=== PATIENT | female | born 2005 | race Caucasian/White ===

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

== ENCOUNTER → 2024-08-26 | Outpatient (CLI) | payer OTHER ==
[~2024-08-26] MED LIST changes: +BUPR-597 PO; +BUPR150T12; +BUPR150T12 PO; -BUPR300T92 PO; +FLUO-290 PO; -FLUO10CA16 PO; +IRON15CH PO; +LATU80TA2; +LATU80TA2 PO; +LEXA1TAB; +LEXA1TAB PO; +LOW-1TAB2; +LOW-1TAB2 PO; -MELA1TAB9 PO; +MELA3TAB49 PO; +MELA5TAB58 PO; +MULTCHW12 PO; +RISP-105 PO; -RISP-8 PO
[2024-08-26 11:36] LABS: HEMATOCRIT 41.2 % (36.0-47.0); HEMOGLOBIN 13.5 g/dl (12.0-15.5); MEAN CORPUSCULAR HEMOGLOBIN 26.9 pg (27.0-33.0); MEAN CORPUSCULAR HGB CONC 32.8 g/dl (32.0-36.5); MEAN CORPUSCULAR VOLUME 82.2 fl (80.0-96.0); PLATELET COUNT, AUTOMATED 269 10^3/uL (150-450); RED BLOOD COUNT 5.01 10^6/uL (4.00-5.40)
[2024-08-26 12:10] LABS: THYROID STIMULATING HORMONE 1.542 uIU/ML (0.55-4.78)
[2024-08-26 12:11] LABS: ALBUMIN 4.1 G/DL (3.2-5.2); ALKALINE PHOSPHATASE 87 U/L (35-104); ALT/SGPT 22 U/L (7.0-40); AST/SGOT 12 U/L (<34); BILIRUBIN,TOTAL 0.6 MG/DL (0.3-1.2); BLOOD UREA NITROGEN 7 MG/DL (9-23); CALCIUM LEVEL 9.4 MG/DL (8.5-10.1); CARBON DIOXIDE LEVEL 24 MMOL/L (20-31); CHLORIDE LEVEL 105 MMOL/L (98-107); GLOMERULAR FILTRATION RATE > 60.0 (>60); GLUCOSE, FASTING 106 MG/DL (60-100); POTASSIUM SERUM 3.8 MMOL/L (3.5-5.1); SODIUM LEVEL 141 MMOL/L (136-145); TOTAL 25(OH) VITAMIN D 22.9 NG/ML (20.0-100.0); TOTAL PROTEIN 7.6 G/DL (5.7-8.2)
[2024-08-26 12:12] LABS: MONO REFLEX EBV COMP NEGATIVE (NEGATIVE)
[2024-08-26 13:11] LABS: APPEARANCE, URINE HAZY (CLEAR); BACTERIA, URINE AUTO 1+ (NEGATIVE); BILIRUBIN, URINE AUTO NEGATIVE (NEGATIVE); BLOOD, URINE BLOOD 2+ (NEGATIVE); COLOR, URINE YELLOW (YELLOW); GLUCOSE, URINE (UA) AUTO NEGATIVE (NEGATIVE); KETONE, URINE AUTO 1+ mg/dL (NEGATIVE); LEUKOCYTE ESTERASE, URINE AUTO NEGATIVE (NEGATIVE); MUCUS, URINE SMALL (NEGATIVE); NITRITE, URINE AUTO NEGATIVE (NEGATIVE); PROTEIN, URINE AUTO 1+ mg/dL (NEGATIVE); RBC, URINE AUTO 1 /HPF (0-3); SPECIFIC GRAVITY URINE AUTO 1.021 (1.002-1.035); SQUAMOUS EPITHELIAL CELL UR AU 10 /HPF (0-6); WBC, URINE AUTO 3 /HPF (0-3)
[2024-08-28 13:37] LABS: EBV VIRAL CAPSID AG IGG < 18.00 U/mL (<18.00); EBV VIRAL CAPSID AG IGM < 36.00 U/mL (<36.00)
== END ==
LOC: M LAB 10:41
PROVIDERS: ATTEND Physician Assistant
DX: R53.83 Other fatigue (principal)

== ENCOUNTER → 2024-10-21 | Outpatient (REF) | payer OTHER ==
[2024-10-21 14:16] LABS: HEMATOCRIT 42.6 % (36.0-47.0); HEMOGLOBIN 13.5 g/dl (12.0-15.5); MEAN CORPUSCULAR HEMOGLOBIN 26.6 pg (27.0-33.0); MEAN CORPUSCULAR HGB CONC 31.7 g/dl (32.0-36.5); MEAN CORPUSCULAR VOLUME 83.9 fl (80.0-96.0); PLATELET COUNT, AUTOMATED 258 10^3/uL (150-450); RED BLOOD COUNT 5.08 10^6/uL (4.00-5.40); WHITE BLOOD COUNT 9.4 10^3/uL (4.0-10.0)
[2024-10-21 14:20] LABS: ALBUMIN 3.9 G/DL (3.2-5.2); ALKALINE PHOSPHATASE 88 U/L (35-104); ALT/SGPT 19 U/L (7.0-40); AST/SGOT 14 U/L (<34); BILIRUBIN,TOTAL 0.5 MG/DL (0.3-1.2); BLOOD UREA NITROGEN 10 MG/DL (9-23); CALCIUM LEVEL 9.2 MG/DL (8.5-10.1); CARBON DIOXIDE LEVEL 27 MMOL/L (20-31); CHLORIDE LEVEL 104 MMOL/L (98-107); CHOLESTEROL LEVEL 173 MG/DL (<200); CHOLESTEROL RISK RATIO 3.74 (<5); CREATININE FOR GFR 0.68 MG/DL (0.55-1.30); GLOMERULAR FILTRATION RATE > 90.0 (>60); GLUCOSE, FASTING 86 MG/DL (60-100); HDL CHOLESTEROL 46.2 MG/DL (>40); LDL CHOLESTEROL 105.8 MG/DL (<100); NON-HDL-C 126.8 MG/DL; POTASSIUM SERUM 3.8 MMOL/L (3.5-5.1); SODIUM LEVEL 141 MMOL/L (136-145); TOTAL PROTEIN 7.4 G/DL (5.7-8.2); TRIGLYCERIDES LEVEL 105 MG/DL (<150)
[2024-10-21 14:22] LABS: THYROID STIMULATING HORMONE 1.944 uIU/ML (0.55-4.78); TOTAL 25(OH) VITAMIN D 25.1 NG/ML (20.0-100.0)
[2024-10-21 14:28] LABS: HEMOGLOBIN A1c 5.2 % (4.0-6.0)
== END ==
LOC: M LAB REF 13:22
PROVIDERS: ATTEND Student in an Organized Health Care Education/Training Program
DX: E28.2 Polycystic ovarian syndrome (principal); Z68.41 Body mass index [BMI] 40.0-44.9, adult; F41.1 Generalized anxiety disorder

== ENCOUNTER → 2024-11-06 | Outpatient (REF) | payer OTHER ==
[~2024-11-06] MED LIST changes: -BUPR-597 PO; +BUPR-766 PO
[2024-11-06 18:25] LABS: BASO % 0.4 % (0.0-1.0); EOS # 0.1 10^3/uL (0.0-0.5); EOS % 0.7 % (0.0-3.0); HEMATOCRIT 40.4 % (36.0-47.0); HEMOGLOBIN 12.9 g/dl (12.0-15.5); LYMPH # 1.9 10^3/uL (1.5-5.0); LYMPH % 18.4 % (24.0-44.0); MEAN CORPUSCULAR HEMOGLOBIN 26.4 pg (27.0-33.0); MEAN CORPUSCULAR HGB CONC 31.9 g/dl (32.0-36.5); MEAN CORPUSCULAR VOLUME 82.8 fl (80.0-96.0); MONO # 0.7 10^3/uL (0.0-0.8); MONO % 6.8 % (2.0-8.0); NEUTROPHILS # 7.8 10^3/uL (1.5-8.5); NEUTROPHILS % 73.3 % (36.0-66.0); PLATELET COUNT, AUTOMATED 298 10^3/uL (150-450); RED BLOOD COUNT 4.88 10^6/uL (4.00-5.40); WHITE BLOOD COUNT 10.6 10^3/uL (4.0-10.0)
[2024-11-06 18:36] LABS: PERCENT SATURATION 9.3 % (13.2-45.0)
[2024-11-06 18:38] LABS: FERRITIN 13.1 NG/ML (7.3-270.7)
[2024-11-06 18:39] LABS: FOLATE 10.1 NG/ML (>5.4)
== END ==
LOC: M LAB REF 17:19
PROVIDERS: ATTEND Student in an Organized Health Care Education/Training Program
DX: R53.83 Other fatigue (principal)

== ENCOUNTER → 2024-11-12 | Outpatient (CLI) | payer OTHER | LOC: M EKG 13:02 | PROVIDERS: ATTEND Student in an Organized Health Care Education/Training Program | DX: R00.2 Palpitations (principal) ==

== ENCOUNTER → 2025-02-05 | Outpatient (CLI) | payer OTHER ==
[~2025-02-05] MED LIST changes: +CETI-24 PO; +LEXA1TAB2 PO; +LURA40TA2 PO; +ONDA-282 PO; +PROP20TA72 PO; +WELLTAB40 PO
== END ==
LOC: M SLEEP HO 11:27
PROVIDERS: ATTEND Student in an Organized Health Care Education/Training Program
DX: G47.33 Obstructive sleep apnea (adult) (pediatric) (principal); R53.83 Other fatigue

== ENCOUNTER 2025-02-11 16:31 | Inpatient (IN) | payer OTHER ==
[~2025-02-11] VITALS: Ht 167.6 cm; Wt 115.5 kg
[~2025-02-11 16:31] MED LIST changes: -CETI-24 PO; -LEXA1TAB2 PO; -LURA40TA2 PO; -ONDA-282 PO; -PROP20TA72 PO; -WELLTAB40 PO
[2025-02-11 17:18] LABS: PLATELET COUNT, AUTOMATED 308 10^3/uL (150-450)
[2025-02-11 17:45] LABS: BARBITURATES URINE NEGATIVE (NEGATIVE); COCAINE METABOLITE URINE NEGATIVE (NEGATIVE); METHADONE URINE NEGATIVE (NEGATIVE); OPIATES URINE NEGATIVE (NEGATIVE); PHENCYCLIDINE URINE NEGATIVE (NEGATIVE)
[2025-02-11 17:46] LABS: AMPHETAMINES LEVEL URINE NEGATIVE (NEGATIVE); BENZODIAZEPINES URINE NEGATIVE (NEGATIVE)
[2025-02-11 17:47] LABS: CANNABINOIDS URINE POSITIVE (NEGATIVE)
[2025-02-11 17:48] LABS: ETHYL ALCOHOL (ETHANOL) < 0.003 % (0.000-0.010)
[2025-02-11 17:50] LABS: ALT/SGPT 27 U/L (7.0-40); AST/SGOT 31 U/L (<34); CALCIUM LEVEL 8.7 MG/DL (8.5-10.1); CARBON DIOXIDE LEVEL 24 MMOL/L (20-31); CHLORIDE LEVEL 103 MMOL/L (98-107); CREATININE FOR GFR 0.66 MG/DL (0.55-1.30); GLOMERULAR FILTRATION RATE > 90.0 (>60); POTASSIUM SERUM 3.4 MMOL/L (3.5-5.1); SALICYLATE LEVEL < 3.0 MG/DL (<30); SODIUM LEVEL 141 MMOL/L (136-145)
[2025-02-11 17:52] LABS: HCG, SERUM QUALITATIVE NEGATIVE (NEGATIVE)
[2025-02-11] MEDS ORDERED: MOM 30 ML SUSPENSION UDC PO PRN (18:35)
[2025-02-11] MEDS ORDERED: IBUPROFEN 400 MG TAB PO PRN (18:35)
[2025-02-11] MEDS ORDERED: ACETAMINOPHEN 325 MG TAB PO PRN (18:35)
[2025-02-11] MEDS: POTASSIUM CHLORIDE 10MEQ SR TABLET PO ONE (18:38)
[2025-02-11] MEDS ORDERED: LURA40TA2 PO (18:46)
[2025-02-11] MEDS ORDERED: ONDA-282 PO (18:46)
[2025-02-11] MEDS ORDERED: LEXA1TAB2 PO (18:46)
[2025-02-11] MEDS ORDERED: CETI-24 PO (18:46)
[2025-02-11] MEDS ORDERED: PROP20TA72 PO (18:46)
[2025-02-11] MEDS ORDERED: WELLTAB40 PO (18:46)
[2025-02-11] MEDS ORDERED: HOME MED LIST COMPLETE! XX SCH (18:50)
[2025-02-11] MEDS: LORazepam 1 MG TAB PO ONE (19:09)
[2025-02-11 20:43] VITALS: BP 113/62; TEMP 97.1; O2SAT 97
[2025-02-12 06:35] VITALS: BP 106/58; TEMP 97.4; O2SAT 98
[2025-02-12] MEDS: PROPRANOLOL 20 MG TAB PO SCH (10:45)
[2025-02-12] MEDS: ESCITALOPRAM OXALATE 10 MG TABLET PO SCH (11:46)
[2025-02-12] MEDS: buPROPion **XL** 150 MG TABLET PO SCH (11:46)
[2025-02-12 15:08] VITALS: BP 122/62; TEMP 97.7; O2SAT 95
[2025-02-12] MEDS: LURASIDONE HCL 40 MG TAB PO SCH (17:50)
[2025-02-12 19:24] LABS: CALCIUM LEVEL 8.9 MG/DL (8.5-10.1); CARBON DIOXIDE LEVEL 25 MMOL/L (20-31); CHLORIDE LEVEL 105 MMOL/L (98-107); CREATININE FOR GFR 0.67 MG/DL (0.55-1.30); GLOMERULAR FILTRATION RATE > 90.0 (>60); POTASSIUM SERUM 3.5 MMOL/L (3.5-5.1); SODIUM LEVEL 142 MMOL/L (136-145)
[2025-02-12] MEDS: traZODone 50 MG TAB PO PRN (20:48)
[2025-02-12] MEDS: MAALOX 30 ML SUSP *UDC PO PRN (20:48)
[2025-02-13 06:43] VITALS: BP 123/86; TEMP 97.4; O2SAT 97
[2025-02-13 08:21] VITALS: BP 140/80
[2025-02-13] MEDS: PROPRANOLOL 20 MG TAB PO PRN (08:21)
== END 2025-02-13 10:02 | disposition home or self-care (01) | DRG 751 ==
LOC: M ED 16:31 → M ED INP 18:33 → M PSY 20:35
PROVIDERS: ADMIT Student in an Organized Health Care Education/Training Program; ATTEND Student in an Organized Health Care Education/Training Program
DX: F33.9 Major depressive disorder, recurrent, unspecified (principal); R45.851 Suicidal ideations; F41.1 Generalized anxiety disorder; F60.3 Borderline personality disorder; E87.6 Hypokalemia; E66.813 Obesity, class 3; F43.10 Post-traumatic stress disorder, unspecified; F41.0 Panic disorder [episodic paroxysmal anxiety]; Z91.51 Personal history of suicidal behavior; Z56.89 Other problems related to employment; Z79.899 Other long term (current) drug therapy; Z91.52 Personal history of nonsuicidal self-harm

== ENCOUNTER 2025-02-13 23:45 | Emergency (ER) | payer OTHER ==
[~2025-02-13] VITALS: Ht 167.6 cm; Wt 118.2 kg
[2025-02-13 23:46] VITALS: BP 120/73; TEMP 97; O2SAT 99
== END 2025-02-14 01:37 | disposition left against medical advice (07) ==
LOC: M ED 23:45
DX: Z53.21 Procedure and treatment not carried out due to patient leaving prior to being seen by health care provider (principal)

== ENCOUNTER → 2025-02-13 | Outpatient (CLI) | payer OTHER ==
[~2025-02-13] MED LIST changes: +CETI-24 PO; +LEXA1TAB2 PO; +LURA40TA2 PO; +ONDA-282 PO; +PROP20TA72 PO; +WELLTAB40 PO
[2025-02-13 16:05] LABS: ALT/SGPT 24 U/L (7.0-40); AST/SGOT 22 U/L (<34); CALCIUM LEVEL 8.5 MG/DL (8.5-10.1); CARBON DIOXIDE LEVEL 28 MMOL/L (20-31); CHLORIDE LEVEL 106 MMOL/L (98-107); CREATININE FOR GFR 0.82 MG/DL (0.55-1.30); GLOMERULAR FILTRATION RATE > 90.0 (>60); POTASSIUM SERUM 3.8 MMOL/L (3.5-5.1); SODIUM LEVEL 144 MMOL/L (136-145)
== END ==
LOC: M LAB 15:09
PROVIDERS: ATTEND Student in an Organized Health Care Education/Training Program
DX: R11.0 Nausea (principal)

== ENCOUNTER 2025-02-14 07:41 | Emergency (ER) | payer OTHER ==
[~2025-02-14] VITALS: Ht 167.6 cm; Wt 114.6 kg
[2025-02-14 11:28] VITALS: BP 128/73; TEMP 97.2; O2SAT 98
== END 2025-02-14 11:25 | disposition home or self-care (01) ==
LOC: M ED 07:41
DX: S93.492A Sprain of other ligament of left ankle, initial encounter (principal); R60.0 Localized edema; W19.XXXA Unspecified fall, initial encounter; Z79.83 Long term (current) use of bisphosphonates; Z79.899 Other long term (current) drug therapy; Y92.009 Unspecified place in unspecified non-institutional (private) residence as the place of occurrence of the external cause; Y93.89 Activity, other specified; Y99.9 Unspecified external cause status

== ENCOUNTER → 2025-02-26 | Outpatient (CLI) | payer OTHER | LOC: M SOG 13:07 | PROVIDERS: ATTEND Physician Assistant | DX: M79.672 Pain in left foot (principal) ==

== ENCOUNTER → 2025-04-17 | Outpatient (CLI) | payer OTHER ==
[2025-04-17 14:43] LABS: PLATELET COUNT, AUTOMATED 292 10^3/uL (150-450)
[2025-04-17 15:11] LABS: ALT/SGPT 24 U/L (7.0-40); AST/SGOT 22 U/L (<34); CALCIUM LEVEL 8.8 MG/DL (8.5-10.1); CARBON DIOXIDE LEVEL 28 MMOL/L (20-31); CHLORIDE LEVEL 105 MMOL/L (98-107); CREATININE FOR GFR 0.68 MG/DL (0.55-1.30); GLOMERULAR FILTRATION RATE > 90.0 (>60); POTASSIUM SERUM 4.0 MMOL/L (3.5-5.1); SODIUM LEVEL 143 MMOL/L (136-145)
== END ==
LOC: M LAB 13:47
PROVIDERS: ATTEND Physician Assistant Medical
DX: R19.7 Diarrhea, unspecified (principal); R15.2 Fecal urgency; R10.30 Lower abdominal pain, unspecified; K21.9 Gastro-esophageal reflux disease without esophagitis; R11.2 Nausea with vomiting, unspecified

== ENCOUNTER → 2025-06-03 | Outpatient (REF) | payer OTHER | LOC: M LAB REF 11:51 | PROVIDERS: ATTEND Physician Assistant Medical | DX: R19.7 Diarrhea, unspecified (principal); R10.30 Lower abdominal pain, unspecified; R15.2 Fecal urgency ==